=== PATIENT | male | born 1995 | race Hispanic/Latino ===

== ENCOUNTER 2023-10-30 07:02 | Emergency (ER) | payer OTHER ==
[~2023-10-30] VITALS: Ht 170.2 cm; Wt 73.8 kg
[2023-10-30] MEDS ORDERED: GABA-284 PO (07:10)
[2023-10-30] MEDS ORDERED: MEDR4PAK PO (09:10)
[2023-10-30 09:25] VITALS: BP 111/72; TEMP 97.3; O2SAT 97
== END 2023-10-30 09:26 | disposition home or self-care (01) ==
LOC: M ED 07:02
DX: S43.431A Superior glenoid labrum lesion of right shoulder, initial encounter (principal); M54.12 Radiculopathy, cervical region; M25.78 Osteophyte, vertebrae; G89.4 Chronic pain syndrome; K21.9 Gastro-esophageal reflux disease without esophagitis; Z79.891 Long term (current) use of opiate analgesic; Z79.899 Other long term (current) drug therapy